=== PATIENT | male | born 1970 | race Hispanic/Latino ===

== ENCOUNTER 2020-04-30 16:34 | Emergency (ER) | payer OTHER ==
[~2020-04-30] VITALS: Ht 177.8 cm; Wt 99.8 kg
[2020-04-30] MEDS ORDERED: ACETAMINOPHEN 325 MG TAB ONE (17:09)
[2020-04-30] MEDS ORDERED: ACETAMINOPHEN 325 MG TAB PO ONE (17:15)
== END 2020-04-30 18:35 | disposition home or self-care (01) ==
LOC: ER 16:49
DX: U07.1 COVID-19 (principal); R50.9 Fever, unspecified
CPT/HCPCS: 99282